=== PATIENT | male | born 1995 | race Asian ===

== ENCOUNTER 2018-07-19 20:48 | Emergency (ER) | payer OTHER ==
--- NOTE | 2018-07-19 20:58 | EDPHY ---
H & P Stated Complaint: "Took 5000-6000mg tylenol in past 2 days", called Poison control, fevers Time Seen by Provider: 07/19/18 20:56 HPI/ROS: HPI: This is a 23-year-old male who presents with Chief Complaint: Fever, concern for Tylenol overdose Location: Body Quality: Fever, concern for Tylenol overdose Duration: 2 days Signs and Symptoms: + fever, no nausea, no vomiting, no diarrhea, no urinary symptoms, no chest pain, no shortness of breath, no wheezing, + nonproductive cough, + sore throat, no neck stiffness, no joint pain, no swollen glands, no ear pain, no rash Timing: Acute Severity: Moderate Context: Patient is generally healthy, presents with 2 day history of fevers a T-max of a 101 F accompanied by fatigue, sore throat, nonproductive cough. Patient reports that he took approximately 4000 mg to 6000 mg of Tylenol over the last 48 hr. He reports that he took a minimum of 4000 mg each day of Tylenol. Did not receive influenza vaccine this year. Patient called poison control today and they advised him to go to the emergency room for concern of Tylenol overdose and to have his "Tylenol levels checked." Modifying Factors: None Comment: ROS: A comprehensive 10 system review of systems is otherwise negative aside from elements mentioned in the history of present illness. MEDICAL/SURGICAL/SOCIAL HISTORY: Medical history: Childhood asthma. Does not take any regular medications. Surgical history: Denies Social history: Never smoked Family history noncontributory. CONSTITUTIONAL: Extremely well-appearing, young adult male, awake and alert, no obvious distress HEENT: Atraumatic and normocephalic, PERRL, EOMI. Nares patent; no rhinorrhea; no nasal mucosal edema. Tympanic membranes clear. Oropharynx clear, tonsils 1 + with mild erythema, uvula midline, no exudate and moist pink mucosa. Airway patent. No lymphadenopathy. No meningismus. Cardiovascular: Normal S1/S2, regular rate, regular rhythm, without murmur rub or gallop. PULMONARY/CHEST: Symmetrical and nontender. Clear to auscultation bilaterally. Good air movement. No accessory muscle usage. ABDOMEN: Soft, nondistended, nontender, no rebound, no guarding, no peritoneal signs, no masses or organomegaly. No CVAT. EXTREMITIES: 2/2 pulses, strength 5/5, no deformities, no clubbing, no cyanosis or edema. NEUROLOGICAL: no focal neuro deficits. GCS 15. SKIN: Warm and dry, no erythema. no rash. Good capillary refill. Source: Patient Exam Limitations: No limitations - Personal History Current Tetanus Diphtheria and Acellular Pertussis (TDAP): Unsure - Medical/Surgical History Hx Asthma: No Hx Chronic Respiratory Disease: No Hx Diabetes: No Hx Cardiac Disease: No Hx Renal Disease: No Hx Cirrhosis: No Hx Alcoholism: No Hx HIV/AIDS: No Hx Splenectomy or Spleen Trauma: No Other PMH: Childhood asthma - Social History Smoking Status: Never smoked Constitutional: Initial Vital Signs Temperature (C) 37.3 C 07/19/18 20:50 Heart Rate 90 07/19/18 20:50 Respiratory Rate 16 07/19/18 20:50 Blood Pressure 129/79 H 07/19/18 20:50 O2 Sat (%) 97 07/19/18 20:50 O2 Delivery Mode Room Air Allergies/Adverse Reactions: No Known Allergies Allergy (Unverified 07/19/18 20:50) Medical Decision Making ED Course/Re-evaluation: Vital signs reviewed and stable upon arrival. Influenza swab and acetaminophen level ordered According to the calculations of 140 milligrams/kilogram maximum per day patient did not overdose on acetaminophen. 2140: acetaminophen level < 10 Influenza A positive. Based on CDC guidelines, not a Tamiflu candidate. Advised supportive care. This patient was seen under the supervision of my secondary supervising physician. I evaluated care for this patient with attending. Differential Diagnosis: Adult fever including but not limited to viral syndromes including influenza, urinary tract infection, pneumonia and sepsis. - Data Points Laboratory Results: 07/19/18 07/19/18 21:04 21:00 Nasal Influenza A PCR FLU A DETECTED H (NEGATIVE) Nasal Influenza B PCR NEGATIVE FOR FLU B (NEGATIVE) Acetaminophen < 10 mcg/mL L mcg/mL (10-30) Departure - Departure Disposition: Home, Routine, Self-Care Clinical Impression: Influenza A Condition: Good Instructions: Influenza (ED) Additional Instructions: Rest as much as possible until you are feeling better. Consume a minimum of 8-10 glasses of water or electrolyte fluid replacement drinks that include Gatorade, Powerade, Pedialyte. Eat a bland diet for the next 48 hours and then slowly advance as tolerated. Take Tylenol 650 mg every 4 hours and/or Ibuprofen 600 mg every 8 hours with food as needed for pain/fever/headache. When to Use Tamiflu For Influenza Tamiflu is not a cure. It may take 1-2 days off you illness. The current recommendations for Tamiflu from The Center for Disease Control (CDC ) include giving Tamiflu to: 1 Children less than 5 years of age. 2 People with respiratory problems such as COPD or Asthma. 3 People with heart problems and those with high blood pressure. 4 People with kidney and liver problems. 5 People with weakened immune systems from known disease. 6 People who are on medicine that weakens their immune system. 7 Women who are . 8 People over the age of 65 and folks from nursing homes. 9 People who will be hospitalized. 10 People at risk (as above) who have been closely exposed to someone with confirmed influenza. These recommendations exist to avoid shortages of the medication and to avoid resistance to the medication. Further information is available on the CDC website: www.cdc.gov/R5M7XBT Please wash your hands frequently, cover your cough, and stay home until you are symptom free. Referrals: [facility],. [Clinic] - As per Instructions
[2018-07-19 22:06] VITALS: BP 124/78
== END 2018-07-19 22:05 | disposition home or self-care (01) ==
DX: J10.1 Influenza due to other identified influenza virus with other respiratory manifestations (principal)
CPT/HCPCS: G0480